=== PATIENT | male | born 1960 | race Caucasian/White ===

== ENCOUNTER 2024-03-16 06:16 | Day surgery (SDC) | payer BC ==
[~2024-03-16] VITALS: Ht 180.3 cm; Wt 154.2 kg
[2024-03-16] MEDS ORDERED: MIDAZOLAM HCL 5 MG/5 ML VIAL ONE (07:24)
[2024-03-16] MEDS ORDERED: SIMETHICONE 40 MG/0.6 ML ML ONE (07:24)
[2024-03-16] MEDS ORDERED: fentaNYL CITRATE/PF 100 MCG/2 ML AMP ONE (07:24)
[2024-03-16 09:00] VITALS: O2SAT 96
[2024-03-16 13:32] VITALS: BP_SYST 138; PULSE 51; RESP 17
== END 2024-03-16 09:36 | disposition home or self-care (01) ==
LOC: SDS 06:16 → SMU 06:29 → SDS 09:36
PROVIDERS: ATTEND Internal Medicine
DX: Z12.11 Encounter for screening for malignant neoplasm of colon (principal); K63.5 Polyp of colon; K64.8 Other hemorrhoids; I10 Essential (primary) hypertension; E78.5 Hyperlipidemia, unspecified; I25.10 Atherosclerotic heart disease of native coronary artery without angina pectoris; M10.9 Gout, unspecified; G47.30 Sleep apnea, unspecified; Z95.4 Presence of other heart-valve replacement; Z79.899 Other long term (current) drug therapy; Z80.0 Family history of malignant neoplasm of digestive organs
CPT/HCPCS: 45385; 99152; 88305; G0378; J2250; J3010